=== PATIENT | female | born 1960 | race Caucasian/White ===

== ENCOUNTER → 2023-05-05 11:06 | Outpatient (POV) | payer MEDICAID, SELFPAY ==
[2023-05-05 11:23] VITALS: BP 140/57; PULSE 80; RESP 18; O2SAT 96; BMI 45.5
--- NOTE | 2023-05-05 11:50 | EXP.PAIN.SOA ---
[facility] Pain Management SOAP Note Subjective:: This patient is a very pleasant 62-year-old female who underwent intrathecal trial of fentanyl on April 12, 2023. This procedure was done in [facility]. She is following up with us in our send the in office today. Patient reporting 4 days of essentially complete pain relief and terms of her overall low back pain bilateral hip and leg radicular symptoms. Patient states she was able to do things she had not done for several years. Ambulating with no pain. Standing with no pain. Flexion, extension, left and right rotation of lumbar spine with no pain. Patient is very interested in intrathecal pain pump implantation. We will begin the process of submitting forms for insurance approval today. Objective:: Patient is awake alert [place] x 3. In no acute distress. Flexion-extension lumbar spine somewhat guarded secondary to pain. Deep tendon reflexes upper lower extremities normal. Motor strength upper lower extremities normal. There is no gross sensory deficit. Gait is normal. Assessment:: Degenerative disc lumbar spine multilevels. Lumbar radiculopathy. Plan:: We will begin the process of insurance approval for intrathecal pain pump implantation. We will call the patient as soon as we are ready. [facility] Disclaimer: The information contained in this section may have been updated after the patient was seen, as this information can be updated by other users. Medical History (Updated 05/05/23 @ 11:36 by Lalita Morrison RN) Arthritis CAD (coronary artery disease) COPD (chronic obstructive pulmonary disease) CVA (cerebral vascular accident) DDD (degenerative disc disease), lumbar Diabetes Gout Heart failure HLD (hyperlipidemia) HTN (hypertension) ELMO (obstructive sleep apnea) Vitamin D deficiency Surgical History (Updated 05/05/23 @ 11:37 by Lalita Morrison RN) H/O breast surgery H/O: hysterectomy History of cholecystectomy History of ear surgery Family History (Updated 05/05/23 @ 11:37 by Lalita Morrison RN) Other Unknown family medical history Social History (Updated 05/05/23 @ 11:39 by Lalita Morrison RN) Smoking Status: Never smoker alcohol intake: never substance use type: denies use current occupational status: unemployed Travel in the last 8 weeks: None
== END ==
PROVIDERS: Visit Provider Nurse Anesthetist, Certified Registered
DX: M51.16 Intervertebral disc disorders with radiculopathy, lumbar region (principal)
CPT/HCPCS: 99202; G0463

== ENCOUNTER 2023-07-14 07:49 | Day surgery (SDC) | payer MEDICAID, SELFPAY ==
[2023-07-13 09:07] VITALS: BMI 47.6
[2023-07-14] VITALS (9 sets, daily range): BP systolic 90–137; BP diastolic 53–79; PULSE 67–122; RESP 14–22; TEMP 36.4–36.7; O2SAT 92–96
[2023-07-14] MEDS: LACTATED RINGERS 1000ML 1,000 ML 25 ML IV (08:33)
[2023-07-14 08:50] LABS: POC Glucose,Bedside 271 (70-110)
[2023-07-14] MEDS: VANCOMYCIN/WATER FOR INJ (PEG) 1.75 GM/350 ML PIGGYBACK IV ×2 (09:55→11:33)
[2023-07-14] MEDS: LIDOCAINE 1% W/EPI 1:100,000 20ML VIAL 40 ML (11:09)
[2023-07-14] MEDS: GENTAMICIN 80 MG/2 ML VIAL (11:09)
[2023-07-14] MEDS: SODIUM CHLORIDE 0.9% 20ML VIAL 40 ML IV (11:09)
--- NOTE | 2023-07-14 12:58 | SUR.PHASEII ---
verbal order from Dr. Sommers for Bactrim DS 1 tablet BID x5 days. Prescription called in to clinic pharmacy. Notified post of staff of prescription called in (ANGEL Carcamo).
--- NOTE | 2023-07-14 13:35 | P.OP_ITS ---
Date of procedure: 07/14/23 Pre-op Diagnosis:: Degenerative disc disease of lumbar spine with lumbar radiculopathy symptoms Post-op Diagnosis:: Same Procedure performed:: Permanent placement intrathecal pain pump with tunneled intrathecal catheter and pump generator placement Surgeon:: Edouard Sommers MD DIESEL DINKEY OPERATOR:: Ruddy Juárez Anesthesia: MAC Estimated blood loss (mL): 5 Clinical Note:: This patient is a pleasant 62-year-old white female who is one of our patients for [place]. She has failed all previous conservative treatments including injections, oral medications, physical therapy and she is not a candidate for surgery. She has had a successful psychological evaluation and a successful intrathecal pump trial. She presents for permanent placement of her intrathecal pain pump today. She was 90 to 100% better during her intrathecal pump trial. Operative findings:: None Operative note:: Informed consent was obtained risk and benefits of the procedure were explained to the patient. Patient was taken the operating room placed prone on the procedure table. She was prepped and draped in sterile fashion. C-arm fluoroscopy was used to view the right flank. [facility] between the 12th rib and iliac crest we anesthetize the skin and subcutaneous tissues. I created the generator pocket. C-arm fluoroscopy was then used to view the L4-5 and L5-S1 interspace. The skin and subcutaneous tissues adjacent to the L4-5 and L5-S1 interspace were anesthetized using lidocaine. I made incision dissected down to the lumbar paraspinous fascia. A 17-gauge spinal needle was inserted and advanced into the L4-5 interspace until clear CSF was obtained. After this intrathecal catheter was inserted and advanced very easily to the T8 vertebral body. Catheter was in good location it was midline and posterior. The stylette of the catheter and the needle withdrawn. The catheter was secured to the fascia with an anchor device and 2-0 Prolene. I prepared the pump with 20 mL of intrathecal morphine 1 mg per mall. I tunneled the catheter from the back to the pump pocket and attached catheter to the pump. We are able to freely withdraw clear CSF through the sideport. The pump was then placed in the pocket with an antibiotic pouch. Both incisions were then closed with 2-0 Vicryl followed by benny. The patient was placed in an abdominal binder taken recovery in stable condition. Patient tolerated the procedure well with no complications. Was interrogated and started at 0.1 mg/day of intrathecal morphine. Patient was discharged home neurologic intact with good relief of pain symptoms. Plan and disposition: We will follow-up with this patient in 1 week for wound check and reprogram. Will follow-up in 2 to 3 weeks for staple removal. Condition: stable Disposition: PACU Complications:: None
--- NOTE | 2023-07-14 13:56 | P.PNANES_ITS ---
[facility] Disclaimer: The information contained in this section may have been updated after the patient was seen, as this information can be updated by other users. Medical History Heart failure Arthritis Gout ELMO (obstructive sleep apnea) COPD (chronic obstructive pulmonary disease) CVA (cerebral vascular accident) DDD (degenerative disc disease), lumbar HLD (hyperlipidemia) HTN (hypertension) CAD (coronary artery disease) Diabetes Vitamin D deficiency Surgical History History of ear surgery H/O: hysterectomy History of cholecystectomy H/O breast surgery Family History Other Family history of myocardial infarction Family history of stroke Unknown family medical history Social History Smoking Status: Former smoker alcohol intake: never substance use type: denies use current occupational status: unemployed Travel in the last 8 weeks: None [facility] Anesthesia Checklist Patient Identification Patient Identification: Arm Band Structural Data Admitted From: Home Planned Operative Procedure/s: Intrathecal Pain Pump Catheter and Generator Placement Under Fluoroscopy Consent for Planned Operative Procedure(s) Verified: Yes Verified Documents: Surgical Consent and History and Physical NPO Status Verified Time NPO: 00:00 Additional verifications Anesthesia Reactions: No Hx Blood Transfusions: No Airway Assessment Mallampati Score:: Class II C-Spine Mobility Assessed: Yes TMJ Mobility Assessed: Yes Dentition: Edentulous Neurological Assessment Level of Consciousness: Awake and Alert Anesthesia Plan Anesthesia Risk discussed: Yes Anesthesia Plan: Verified ASA Class: III Anesthesia Type: MAC
--- NOTE | 2023-07-14 13:57 | EXP.ANES.I ---
[facility] Anesthesia Record Part I Anesthesia Record I Intake, IV Amount: 200 Hydration: Adequate Estimated blood loss (mL): 5 Urine output (mL): 0 Blood Products used (#): none Blood Pressure: 135/76 SaO2: 92 Pulse Rate: 102 Airway Patency: Patent Respiratory Rate: 16 Temperature: 98 F Patient is:: Drowsy and Stable Stable to PACU at:: 11:40
[2023-07-17 06:40] LABS: POC Glucose,Bedside 290 (70-110)
== END 2023-07-14 13:00 | disposition home or self-care (01) ==
PROVIDERS: Visit Provider Anesthesiology
PROC: (CPT 62350; principal; 2023-07-14 09:30)
DX: M51.16 Intervertebral disc disorders with radiculopathy, lumbar region (principal); E11.9 Type 2 diabetes mellitus without complications
CPT/HCPCS: 62350; 62362; 82962; 96374; C1755; C1772

== ENCOUNTER 2023-07-20 11:10 | Outpatient (POV) | payer MEDICAID, SELFPAY ==
[2023-07-20 11:19] VITALS: BP 105/81; PULSE 59; RESP 18; O2SAT 95; BMI 46.0
--- NOTE | 2023-07-20 11:41 | P.PCN_ITS ---
Procedure Date: 07/20/23 Time: 11:41 Anesthesiologist:: Vane Escobar APRN Complications:: None Pre-procedure Diagnosis:: Degenerative disc disease of lumbar spine with lumbar radiculopathy symptoms Post-procedure Diagnosis:: Same Indications for Procedure:: Patient is a pleasant 62-year-old female who presents today for 1 week postop of intrathecal pain pump placement on 07/14/2023. Today she rates her pain at 8 and out of 10. She denies any new trauma or injury. She does state that she feels like she has gotten already some improvement compared to what she was prior to this procedure. She states that she is feels like the pump is helping and working well. She is currently managed with morphine 1 mg/mL with a daily dose of 0.0999 mg/day. She denies any side effects from this medication. Her [place] has been reviewed and is appropriate. Physical Exam: General: Alert and oriented x3, no acute distress, pleasant and cooperative Lungs: Respirations even and unlabored, symmetrical chest expansion Eyes: PERRL Musculoskeletal: Flexion and extension of lumbar [spine] somewhat guarded secondary to pain, [antalgic gait noted] Neurological: Speech clear, no gross sensory deficit Skin: Incision sites are clean, dry, well-approximated with benny intact and minimal erythema noted Procedure Details:: Informed consent was obtained and the risk and benefits of the procedure were explained to the patient. Patient was taken to the procedure room where noninvasive monitoring was placed including noninvasive blood pressure cuff and pulse oximeter. Patient's pump was interrogated and was reprogrammed to morphine 0.11 mg/day. The patient tolerated the procedure well with no complications. Plan and Disposition:: Patient tolerated her intrathecal increase with no complications and was discharged neurologically intact. Patient has been counseled to continue her postop restrictions for the full 6 weeks including no submerging in water until her incisions are healed, minimal bending, twisting or lifting and to continue to use her abdominal binder to prevent seroma formation. Patient will return to clinic in 2 weeks for staple removal and possible additional adjustment. Patient acknowledges understanding. Patient has been instructed to contact the clinic with any concerns before the next appointment. Dr. Sommers has reviewed this note and agrees with this plan of care. This note was dictated using voice recognition software and make contain errors or omissions. -- It Is medically necessary for this patient to continue to have their intrathecal pump refilled at regular intervals. This patient had an intrathecal pain pump implanted after meeting criteria of chronic intractable pain for greater than 3 months and failing conservative treatments. Patient has committed and been compliant to the treatment plan and all planned follow up care. Since implantation of the intrathecal pain pump, the patient has had decreased pain and been more functional. Oral medications have been reduced including intake of oral opioids. Patient continues to do well with intrathecal therapy with decrease in pain symptoms and increase in functional status. Stopping intratheca l medications can lead to life threatening withdrawal, seizures, cardiac arrest, severe pain, and possible . Pumps that are not refilled at regular intervals can be damages and cause and need for replacement. We continually titrate dose and concentration to optimize pain relief and function. We are limited in concentration for certain drugs to safely deliver medications through the pump and stay within the recommendations from the Polyanalgesic Consensus Committee Guidelines. Depending on dose and concentration these pumps may need to be refilled sooner than 3 months as we titrate.
== END 2023-07-20 23:59 | disposition home or self-care (01) ==
PROVIDERS: Visit Provider Nurse Practitioner Family
DX: M51.16 Intervertebral disc disorders with radiculopathy, lumbar region (principal); Z97.8 Presence of other specified devices; Z45.1 Encounter for adjustment and management of infusion pump
CPT/HCPCS: 62368; 99212; G0463

== ENCOUNTER 2023-08-04 11:02 | Outpatient (POV) | payer MEDICAID, SELFPAY ==
--- NOTE | 2023-08-04 11:10 | EXP.PAIN.PRO ---
Procedure Date: 08/04/23 Time: 11:11 Anesthesiologist:: Vane Escobar APRN Complications:: None Pre-procedure Diagnosis:: Degenerative disc disease of lumbar spine with lumbar radiculopathy symptoms, chronic pain syndrome Post-procedure Diagnosis:: Same Indications for Procedure:: Patient is a pleasant 62-year-old female who presents today for 3 week postop of intrathecal pain pump placement on 07/14/2023. Today she rates her pain a 6 out of 10. She does state that she fell last Monday and denies any specific major injury. She states that she just was a little sore however does not think that she did anything more major like a fracture. She does state that she will still have more pain that seems like at the end of the day that she will wake back and her recliner and that it does seem more bothersome then. She is requesting if we can do an increase. She is currently managed with morphine 1 mg/mL with a daily dose of 0.11 mg/day. She denies any side effects from this medication. Her [place] has been reviewed and is appropriate. Physical Exam: General: Alert and oriented x3, no acute distress, pleasant and cooperative Lungs: Respirations even and unlabored, symmetrical chest expansion Eyes: PERRL Musculoskeletal: Flexion and extension of lumbar [spine] somewhat guarded secondary to pain, [antalgic gait noted] Neurological: Speech clear, no gross sensory deficit Skin: Incision sites are clean, dry, well-approximated with benny intact and minimal erythema noted Procedure Details:: Informed consent was obtained and the risk and benefits of the procedure were explained to the patient. Patient was taken to the procedure room where noninvasive monitoring was placed including noninvasive blood pressure cuff and pulse oximeter. Patient's pump was interrogated and was reprogrammed to morphine 0.1211 mg/day. The patient tolerated the procedure well with no complications. Plan and Disposition:: Patient tolerated her intrathecal increase with no complications and was discharged neurologically intact. Patient did have majority of her benny removed at today's visit. Patient does still have 3 benny that were left in place as a precaution. I have discussed with her that we will plan on having her come back in 2 additional weeks for possible additional adjustment of her pump as well as the removal of these remaining sutures. She was counseled to continue her full 6-week postop restrictions. Patient acknowledges understanding and agrees with this plan of care. Patient will return to clinic in 1 month for reevaluation of symptoms and plan of care. Patient has been instructed to contact the clinic with any concerns before the next appointment. Dr. Sommers has reviewed this note and agrees with this plan of care. This note was dictated using voice recognition software and make contain errors or omissions. -- It Is medically necessary for this patient to continue to have their intrathecal pump refilled at regular intervals. This patient had an intrathecal pain pump implanted after meeting criteria of chronic intractable pain for greater than 3 months and failing conservative treatments. Patient has committed and been compliant to the treatment plan and all planned follow up care. Since implantation of the intrathecal pain pump, the patient has had decreased pain and been more functional. Oral medications have been reduced including intake of oral opioids. Patient continues to do well with intrathecal therapy with decrease in pain symptoms and increase in functional status. Stopping intrathecal medications can lead to life threatening withdrawal, seizures, cardiac arrest, severe pain, and possible . Pumps that are not refilled at regular intervals can be damages and cause and need for replacement. We continually titrate dose and concentration to optimize pain relief and function. We are limited in concentration for certain drugs to safely deliver medications through the pump and stay within the recommendations from the Polyanalgesic Consensus Committee Guidelines. Depending on dose and concentration these pumps may need to be refilled sooner than 3 months as we titrate.
[2023-08-04 11:31] VITALS: BP 153/60; PULSE 74; RESP 18; O2SAT 95; BMI 47.0
== END 2023-08-04 23:59 | disposition home or self-care (01) ==
PROVIDERS: Visit Provider Nurse Practitioner Family
DX: M51.16 Intervertebral disc disorders with radiculopathy, lumbar region (principal); G89.4 Chronic pain syndrome; Z97.8 Presence of other specified devices; Z45.1 Encounter for adjustment and management of infusion pump
CPT/HCPCS: 62368; 99213; G0463

== ENCOUNTER 2023-08-21 13:53 | Outpatient (POV) | payer MEDICAID, SELFPAY ==
[2023-08-21 14:36] VITALS: BP 94/63; PULSE 87; RESP 20; O2SAT 94; BMI 45.5
--- NOTE | 2023-08-21 14:41 | P.PCN_ITS ---
Procedure Date: 08/21/23 Time: 14:41 Anesthesiologist:: Vane Escobar APRN Complications:: None Pre-procedure Diagnosis:: Degenerative disc disease of lumbar spine with lumbar radiculopathy symptoms, chronic pain syndrome Post-procedure Diagnosis:: Same Indications for Procedure:: Patient is a pleasant 62-year-old female who presents today for intrathecal adjustment and reprogram. Today she rates her pain an 8 out of 10. Patient states she did have a couple falls since her last visit. Patient does state that she is somewhat accident-prone in general and that she stumbled getting out of the vehicle. Patient does state that she fell back on her back and hit the back of her head however she does not believe she did anything significant. Patient is currently managed with morphine 1 mg/mL with a daily dose of 0.1211 mg/day. She denies any side effects from this medication. Her [place] has been reviewed and is appropriate. Physical Exam: General: Alert and oriented x3, no acute distress, pleasant and cooperative Lungs: Respirations even and unlabored, symmetrical chest expansion Eyes: PERRL Musculoskeletal: Flexion and extension of lumbar [spine] somewhat guarded secondary to pain, [antalgic gait noted] Neurological: Speech clear, no gross sensory deficit Procedure Details:: Informed consent was obtained and the risk and benefits of the procedure were explained to the patient. Patient was taken to the procedure room where noninvasive monitoring was placed including noninvasive blood pressure cuff and pulse oximeter. Patient's pump was interrogated and was reprogrammed to morphine 0.90955 mg/day. The patient tolerated the procedure well with no complications. Plan and Disposition:: Patient tolerated her intrathecal increase with no complications and was disch arged neurologically intact. She did have the remainder of her benny removed during today's visit. She was counseled to continue her postop restrictions for the full 6 weeks. I have also discussed with the patient precautions to minimize fall risk. Patient will return to clinic in 1 month for reevaluation of symptoms and plan of care. We will see the patient back in the clinic at the next intrathecal refill. Patient has been instructed to contact the clinic with any concerns before the next appointment. Dr. Sommers has reviewed this note and agrees with this plan of care. This note was dictated using voice recognition software and make contain errors or omissions. -- It Is medically necessary for this patient to continue to have their intrathecal pump refilled at regular intervals. This patient had an intrathecal pain pump implanted after meeting criteria of chronic intractable pain for greater than 3 months and failing conservative treatments. Patient has committed and been co mpliant to the treatment plan and all planned follow up care. Since implantation of the intrathecal pain pump, the patient has had decreased pain and been more functional. Oral medications have been reduced including intake of oral opioids. Patient continues to do well with intrathecal therapy with decrease in pain symptoms and increase in functional status. Stopping intrathecal medications can lead to life threatening withdrawal, seizures, cardiac arrest, severe pain, and possible . Pumps that are not refilled at regular intervals can be damages and cause and need for replacement. We continually titrate dose and concentration to optimize pain relief and function. We are limited in concentration for certain drugs to safely deliver medications through the pump and stay within the recommendations from the Polyanalgesic Consensus Committee Guidelines. Depending on dose and concentration these pumps may need to be refilled sooner than 3 months as we titrate.
== END 2023-08-21 23:59 | disposition home or self-care (01) ==
PROVIDERS: Visit Provider Nurse Practitioner Family
DX: M51.16 Intervertebral disc disorders with radiculopathy, lumbar region (principal); M96.1 Postlaminectomy syndrome, not elsewhere classified; Z97.8 Presence of other specified devices; Z45.1 Encounter for adjustment and management of infusion pump
CPT/HCPCS: 62368; 99213; G0463

== ENCOUNTER 2023-09-21 14:06 | Outpatient (POV) | payer MEDICAID, SELFPAY ==
[2023-09-21 14:20] VITALS: BP 116/53; PULSE 79; RESP 18; O2SAT 97; BMI 45.3
--- NOTE | 2023-09-21 14:39 | P.PCN_ITS ---
Procedure Date: 09/21/23 Time: 14:39 Anesthesiologist:: Vane Escobar APRN Complications:: None Pre-procedure Diagnosis:: Degenerative disc disease of lumbar spine with lumbar radiculopathy symptoms, chronic pain syndrome Post-procedure Diagnosis:: Same Indications for Procedure:: Patient is a pleasant 62-year-old female who presents today for intrathecal adjustment and reprogram. Today she rates her pain a 7 out of 10. She denies any new trauma or injury. She is currently managed with morphine 1 mg/mL with a daily dose of 0.87103 mg/day. She denies any side effects from this medication. Patient does state that she feels like she still needs some additional adjustment. Patient does state at her last refill they did mention about possibly getting her set up with the at home refill program. Patient states that she is very interested in this option. Her [place] has been reviewed and is appropriate. Physical Exam: General: Alert and oriented x3, no acute distress, pleasant and cooperative Lungs: Respirations even and unlabored, symmetrical chest expansion Eyes: PERRL Musculoskeletal: Flexion and extension of lumbar [spine] somewhat guarded secondary to pain, [antalgic gait noted] Neurological: Speech clear, no gross sensory deficit Procedure Details:: Informed consent was obtained and the risk and benefits of the procedure were explained to the patient. Patient was taken to the procedure room where noninvasive monitoring was placed including noninvasive blood pressure cuff and pulse oximeter. Patient's pump was interrogated and was reprogrammed to morphine 0.1533 milligrams per day. The patient tolerated the procedure well with no complications. Plan and Disposition:: Patient tolerated her intrathecal increase with no complications and was discharged neurologically intact. We will see the patient back in the clinic at the next intrathecal refill. I have discussed with the patient that we will plan on getting her set up with [facility] at home refill however with her upcoming intrathecal refill in October to still plan on coming here to the hospital for that appointment and then after that we will make sure that she is getting her refills at home. Patient was counseled that we will require her to come in every 6 months. Patient is agreeable to this plan of care. Patient has been instructed to contact the clinic with any concerns before the next appointment. Dr. Sommers has reviewed this note and agrees with this plan of care. This note was dictated using voice recognition software and make contain errors or omissions. -- It Is medically necessary for this patient to continue to have their intrathecal pump refilled at regular intervals. This patient had an intrathecal pain pump implanted after meeting criteria of chronic intractable pain for greater than 3 months and failing conservative treatments. Patient has committed and been compliant to the treatment plan and all planned follow up care. Since implantation of the intrathecal pain pump, the patient has had decreased pain and been more functional. Oral medications have been reduced including intake of oral opioids. Patient continues to do well with intrathecal therapy with decrea se in pain symptoms and increase in functional status. Stopping intrathecal medications can lead to life threatening withdrawal, seizures, cardiac arrest, severe pain, and possible . Pumps that are not refilled at regular intervals can be damages and cause and need for replacement. We continually titrate dose and concentration to optimize pain relief and function. We are limited in concentration for certain drugs to safely deliver medications through the pump and stay within the recommendations from the Polyanalgesic Consensus Committee Guidelines. Depending on dose and concentration these pumps may need to be refilled sooner than 3 months as we titrate.
== END 2023-09-21 23:59 | disposition home or self-care (01) ==
PROVIDERS: Visit Provider Nurse Practitioner Family
DX: M51.16 Intervertebral disc disorders with radiculopathy, lumbar region (principal); G89.4 Chronic pain syndrome; Z97.8 Presence of other specified devices; Z45.1 Encounter for adjustment and management of infusion pump
CPT/HCPCS: 62368; 99213; G0463

== ENCOUNTER 2023-10-31 13:44 | Day surgery (SDC) | payer MEDICAID, SELFPAY ==
[2023-10-31 14:12] VITALS: BP 130/96; PULSE 94; RESP 16; TEMP 36.8; O2SAT 98; BMI 42.4
--- NOTE | 2023-10-31 14:29 | EXP.PAIN.PRO ---
Procedure Date: 10/31/23 Time: 14:30 Anesthesiologist:: Jan Henderson CRNA Complications:: None Pre-procedure Diagnosis:: Degenerative disc lumbar spine multilevels. Lumbar radiculopathy. Chronic pain syndrome. Post-procedure Diagnosis:: Same. Indications for Procedure:: Patient is a pleasant 62-year-old female comes our clinic today for intrathecal pain pump interrogation and refill. She is currently being managed with morphine sulfate 1 mg/mL. Intrathecal pain pump rate is 0.1533 mg/day. Patient doing very well with her current settings. She not requesting any changes. She is not reporting side effects or complications. Procedure Details:: Details of the procedure were explained to the patient. Patient taken to procedure room placed in sitting position. The area of the pump was cleaned using chlorhexidine cleansing solution. The pump was interrogated. The pump was accessed with ease using a 22-gauge inch and half needle. 4 mL solution was withdrawn discarded appropriately. The pump was then filled with 20 cc of solution containing morphine sulfate 1 mg/mL. The rate will continue at 0.1533 mg/day. Patient tolerated procedure without difficulty. There are no complications. Plan and Disposition:: Patient was discharged without incident.
[2023-10-31 14:35] VITALS: BP 124/76; PULSE 78; RESP 16; O2SAT 98
[2023-10-31 14:55] VITALS: BP 138/63; PULSE 83; RESP 18; O2SAT 96
[2023-10-31 14:56] VITALS: BP 138/63; PULSE 83; RESP 18; O2SAT 96
== END 2023-10-31 14:35 | disposition home or self-care (01) ==
PROVIDERS: Visit Provider Nurse Anesthetist, Certified Registered
DX: G89.4 Chronic pain syndrome (principal); M51.36 Other intervertebral disc degeneration, lumbar region; M54.16 Radiculopathy, lumbar region
CPT/HCPCS: 95991

== ENCOUNTER 2024-01-04 14:13 | Outpatient (POV) | payer MEDICAID, SELFPAY ==
--- NOTE | 2024-01-04 14:39 | P.PCN_ITS ---
Procedure Date: 01/04/24 Time: 14:39 Anesthesiologist:: Vane Escobar APRN Complications:: None Pre-procedure Diagnosis:: Degenerative disc disease of lumbar spine with lumbar radiculopathy symptoms Post-procedure Diagnosis:: Same Indications for Procedure:: Patient is a pleasant 63-year-old female who presents today for intrathecal adjustment and reprogram. Today she rates her pain a 9 out of 10. Patient does state that she has had a few falls from her last visit. Patient states that it is unrelated to her pump and has more so what she thinks to do with doing a lot of work and that she has been experience a little dizziness when she goes from bending over to standing up resulting in her falls. Patient does state that she is scheduled to see her primary care soon and that her A1c has been 9 and that they are trying to get this down. Patient does state that she has lost appr oximately 45 pounds with diet medications. She is currently managed with morphine 1 mg/mL with a daily dose of 0.1533 mg/day. She denies any side effects from this medication. Her [place] has been reviewed and is appropriate. Physical Exam: General: Alert and oriented x3, no acute distress, pleasant and cooperative Lungs: Respirations even and unlabored, symmetrical chest expansion Eyes: PERRL Musculoskeletal: Flexion and extension of lumbar [spine] somewhat guarded secondary to pain, [antalgic gait noted] Neurological: Speech clear, no gross sensory deficit Procedure Details:: Informed consent was obtained and the risk and benefits of the procedure were explained to the patient. Patient was taken to the procedure room where noninvasive monitoring was placed including noninvasive blood pressure cuff and pulse oximeter. Patient's pump was interrogated and was reprogrammed to morphine 0.1687 mg/day. The patient tolerated the procedure well with no complications. Plan and Disposition:: Patient tolerated intrathecal increase with no complications and was discharged neurologically intact. I did discuss at length with the patient regarding her dizziness and recent falls. I highly recommend that she follow-up with her primary care as soon as possible to rule out any other issues. Patient does state that she is on blood pressure medication. I have counseled her that they may need to make some additional adjustments regarding this. She acknowledges understanding and agrees with plan of care. Patient already does have her next intrathecal refill date scheduled next month. I did alcohol and drug counselor her that we will not give her any additional appointment dates and if she needs us in between visits to reach out to our office. Patient agrees with this plan of care. Patient will return to clinic for her intrathecal refill on or before the . We will see the patient back in the clinic at the next intrathecal refill. Patient has been instructed to contact the clinic with any concerns before the next appointment. Dr. Sommers has reviewed this note and agrees with this plan of care. This note was dictated using voice recognition software and make contain errors or omissions. -- It Is medically necessary for this patient to continue to have their intrathecal pump refilled at regular intervals. This patient had an intrathecal pain pump implanted after meeting criteria of chronic intractable pain for greater than 3 months and failing conservative treatments. Patient has committed and been compliant to the treatment plan and all planned follow up care. Since implantation of the intrathecal pain pump, the patient has had decreased pain and been more functional. Oral medications have been reduced including intake of oral opioids. Patient continues to do well with intrathecal therapy with decrease in pain symptoms and increase in functional status. Stopping intrathe nichole medications can lead to life threatening withdrawal, seizures, cardiac arrest, severe pain, and possible . Pumps that are not refilled at regular intervals can be damages and cause and need for replacement. We continually titrate dose and concentration to optimize pain relief and function. We are limited in concentration for certain drugs to safely deliver medications through the pump and stay within the recommendations from the Polyanalgesic Consensus Committee Guidelines. Depending on dose and concentration these pumps may need to be refilled sooner than 3 months as we titrate.
[2024-01-04 14:56] VITALS: BP 128/80; PULSE 78; RESP 16; O2SAT 97; BMI 40.9
== END 2024-01-04 23:59 | disposition home or self-care (01) ==
PROVIDERS: Visit Provider Nurse Practitioner Family
DX: M51.16 Intervertebral disc disorders with radiculopathy, lumbar region (principal)
CPT/HCPCS: 62368; 99213; G0463

== ENCOUNTER 2024-01-23 13:58 | Day surgery (SDC) | payer MEDICAID, SELFPAY ==
[2024-01-23 14:15] VITALS: BP 152/79; PULSE 81; RESP 16; O2SAT 99; BMI 40.2
[2024-01-23 14:24] VITALS: BP 154/81; PULSE 72; RESP 18; O2SAT 97
[2024-01-23 14:26] VITALS: BP 154/81; PULSE 72; RESP 18; O2SAT 97
[2024-01-23 14:40] VITALS: BP 128/76; PULSE 75; RESP 16; O2SAT 97
--- NOTE | 2024-01-23 14:45 | EXP.PAIN.PRO ---
Procedure Date: 01/23/24 Time: 14:30 Anesthesiologist:: Jan Henderson CRNA Complications:: None Pre-procedure Diagnosis:: Degenerative disc lumbar spine multilevels. Lumbar radiculopathy. Lumbar postlaminectomy syndrome. Chronic pain syndrome. Post-procedure Diagnosis:: Same. Indications for Procedure:: Patient is a pleasant 63-year-old female who comes our clinic today for intrathecal pain pump interrogation and refill. Patient currently being managed with morphine sulfate 1 mg/mL at a rate of 0.1687 mg/day. She is not reporting side effects or complications. She is not requesting any changes. She rates her pain today 3/10. Patient is awake alert [place] x 3. No acute distress. Flexion-extension lumbar spine somewhat guarded secondary to pain. Deep tendon reflexes upper lower extremities normal. Motor strength upper lower extremities normal. There is no gross sensory deficit. Gait is normal. Procedure Details:: Details of procedure explained to the patient. The patient taken the procedure room placed in sitting position. They over the pumps cleansed using chlorhexidine as a cleansing solution. The pump was interrogated. The pump was accessed with ease using a 22-gauge inch and half needle. 6 mL of solution was withdrawn discarded appropriately. The pump was then filled with 20 cc of solution containing morphine sulfate 1 mg/mL. No change in pump rate. Patient tolerated procedure without difficulty. No complications. Plan and Disposition:: Patient was discharged without incident.
== END 2024-01-23 14:40 | disposition home or self-care (01) ==
LOC: SC.PAINP 14:00
PROVIDERS: PCP Family Medicine; Visit Provider Nurse Anesthetist, Certified Registered
DX: M51.16 Intervertebral disc disorders with radiculopathy, lumbar region (principal); M96.1 Postlaminectomy syndrome, not elsewhere classified; G89.4 Chronic pain syndrome
CPT/HCPCS: 95991

== ENCOUNTER 2024-04-05 10:55 | Day surgery (SDC) | payer MEDICAID, SELFPAY ==
[2024-04-05 11:45] VITALS: BP 115/61; PULSE 69; RESP 16; TEMP 36.6; O2SAT 97; BMI 36.6
--- NOTE | 2024-04-05 12:10 | EXP.PAIN.PRO ---
Procedure Date: 04/05/24 Time: 12:19 Anesthesiologist:: Vane Escobar APRN Complications:: None Pre-procedure Diagnosis:: Degenerative disc disease of lumbar spine with lumbar radiculopathy symptoms Post-procedure Diagnosis:: Same Indications for Procedure:: Patient is a pleasant 63-year-old female who presents today for intrathecal refill and reprogram. Today she rates her pain a 8 out of 10. She denies any new trauma or injury. Patient is currently managed with morphine 1 mg/mL with a daily dose of 0.1687 mg/day. She denies any side effects from this medication. His [place] has been reviewed and is appropriate. Physical Exam: General: Alert and oriented x3, no acute distress, pleasant and cooperative Lungs: Respirations even and unlabored, symmetrical chest expansion Eyes: PERRL Musculoskeletal: Flexion and extension of lumbar [spine] somewhat guarded secondary to pain, [antalgic gait noted] Neurological: Speech clear, no gross sensory deficit Procedure Details:: Informed consent was obtained and the risk and benefits of the procedure were explained to the patient. The patient had noninvasive monitoring placed including noninvasive blood pressure cuff and pulse oximeter. Patient's pump was interrogated. The area over the pump was cleansed with chlorhexidine as a cleansing solution. In sterile fashion the pump was accessed with a 22-gauge needle. Approximately 7.9 mls of the pump solution was removed and discarded appropriately. The pump was then refilled with 20 mL's of morphine 1 mg/mL. The needle was withdrawn and a bandage was placed over the puncture site. The infusion rate was reprogrammed and morphine 0.1687 mg/day. The patient tolerated well with no complication. Plan and Disposition:: Patient tolerated her intrathecal refill and reprogram with no complications and was discharged neurologically intact. Patient will return to clinic for her next intrathecal refill date. We will see the patient back in the clinic at the next intrathecal refill. Patient has been instructed to contact the clinic with any concerns before the next appointment. Dr. Sommers has reviewed this note and agrees with this plan of care. This note was dictated using voice recognition software and make contain errors or omissions. -- It Is medically necessary for this patient to continue to have their intrathecal pump refilled at regular intervals. This patient had an intrathecal pain pump implanted after meeting criteria of chronic intractable pain for greater than 3 months and failing conservative treatments. Patient has committed and been compliant to the treatment plan and all planned follow up care. Since implantation of the intrathecal pain pump, the patient has had decreased pain and been more functional. Oral medications have been reduced including intake of oral opioids. Patient continues to do well with intrathecal therapy with decrease in pain symptoms and increase in functional status. Stopping intrathecal medications can lead to life threatening withdrawal, seizures, cardiac arrest, severe pain, and possible . Pumps that are not refilled at regular intervals can be damages and cause and need for replacement. We continually titrate dose and concentration to optimize pain relief and function. We are limited in concentration for certain drugs to safely deliver medications through the pump and stay within the recommendations from the Polyanalgesic Consensus Committee Guidelines. Depending on dose and concentration these pumps may need to be refilled sooner than 3 months as we titrate. A UDS is needed to verify patient's compliance with our office pain contract. This is ordered based off specific treatments related to chronic pain with the potential to abuse certain medications.
[2024-04-05 12:14] VITALS: BP 136/79; PULSE 71; RESP 18; O2SAT 95
[2024-04-05 12:15] VITALS: BP 136/79; PULSE 70; RESP 18; O2SAT 97
[2024-04-05 12:33] VITALS: BP 117/65; PULSE 87; RESP 16; O2SAT 95
== END 2024-04-05 12:33 | disposition home or self-care (01) ==
PROVIDERS: Visit Provider Nurse Practitioner Family
DX: M51.16 Intervertebral disc disorders with radiculopathy, lumbar region (principal)
CPT/HCPCS: 62370

== ENCOUNTER 2024-06-21 10:25 | Day surgery (SDC) | payer MEDICAID, SELFPAY ==
[2024-06-21 10:40] VITALS: BP 136/70; PULSE 79; RESP 16; TEMP 36.8; O2SAT 98; BMI 41.1
--- NOTE | 2024-06-21 10:45 | P.PCN_ITS ---
Procedure Date: 06/21/24 Time: 11:24 Anesthesiologist:: Vane Escobar APRN Complications:: None Pre-procedure Diagnosis:: Degenerative disc disease of lumbar spine with lumbar radiculopathy symptoms Post-procedure Diagnosis:: Same Indications for Procedure:: Patient is a pleasant 63-year-old female who presents today for intrathecal refill and reprogram. She rates her pain today a 6 out of 10. Patient denies any new trauma or injury. She does state that she is having creased pain ove rall. Patient is requesting if we can go up on her pump settings. Patient is currently managed with morphine 1 mg/mL with a daily dose of 0.1687 mg/day. She denies any side effects. She does state that the pump is going well and that she has been able to do more than she is ever done for some time. She does state certain things she still cannot do such as get down on the floor but that this does make her feel much more functional. Her [place] has been reviewed and is appropriate. Physical Exam: General: Alert and oriented x3, no acute distress, pleasant and cooperative Lungs: Respirations even and unlabored, symmetrical chest expansion Eyes: PERRL Musculoskeletal: Flexion and extension of lumbar [spine] somewhat guarded secondary to pain, [antalgic gait noted] Neurological: Speech clear, no gross sensory deficit Procedure Details:: Informed consent was obtained and the risk and benefits of the procedure were explained to the patient. The patient had noninvasive monitoring placed including noninvasive blood pressure cuff and pulse oximeter. Patient's pump was interrogated. The area over the pump was cleansed with chlorhexidine as a cleansing solution. In sterile fashion the pump was accessed with a 22-gauge needle. Approximately 7 mls of the pump solution was removed and discarded appropriately. The pump was then refilled with 20 mL's of morphine 1 mg/mL. The needle was withdrawn and a bandage was placed over the puncture site. The infusion rate was reprogrammed and increased 10% to morphine 0.1855 mg/day. The patient tolerated well with no complication. Plan and Disposition:: Patient tolerated the procedure well with no complications and was discharged neurologically intact. Patient will return to clinic on or before their next intrathecal refill date. We will see the patient back in the clinic at the next intrathecal refill. Patient has been instructed to contact the clinic with any concerns before the next appointment. Dr. Sommers has reviewed this note and agrees with this plan of care. This note was dictated using voice recognition software and make contain errors or omissions. -- It Is medically necessary for this patient to continue to have their intrathecal pump refilled at regular intervals. This patient had an intrathecal pain pump im planted after meeting criteria of chronic intractable pain for greater than 3 months and failing conservative treatments. Patient has committed and been compliant to the treatment plan and all planned follow up care. Since implantation of the intrathecal pain pump, the patient has had decreased pain and been more functional. Oral medications have been reduced including intake of oral opioids. Patient continues to do well with intrathecal therapy with decrease in pain symptoms and increase in functional status. Stopping intrathecal medications can lead to life threatening withdrawal, seizures, cardiac arrest, severe pain, and possible . Pumps that are not refilled at regular intervals can be damages and cause and need for replacement. We continually titrate dose and concentration to optimize pain relief and function. We are limited in concentration for certain drugs to safely deliver medications through the pump and stay within the recommendations from the Polyanalgesic Consensus Committee Guidelines. Depending on dose and concentration these pumps may need to be refilled sooner than 3 months as we titrate. A UDS is needed to verify patient's compliance with our office pain contract. This is ordered based off specific treatments related to chronic pain with the potential to abuse certain medications.
[2024-06-21 11:20] VITALS: BP 129/56; PULSE 78; RESP 18; O2SAT 98
[2024-06-21 11:22] VITALS: BP 129/56; PULSE 85; RESP 18; O2SAT 98
[2024-06-21 11:33] VITALS: BP 102/70; PULSE 69; RESP 16; O2SAT 92
== END 2024-06-21 11:33 | disposition home or self-care (01) ==
PROVIDERS: PCP Family Medicine; Visit Provider Nurse Practitioner Family
DX: M51.16 Intervertebral disc disorders with radiculopathy, lumbar region (principal)
CPT/HCPCS: 62370

== ENCOUNTER 2024-08-16 09:21 | Day surgery (SDC) | payer MEDICAID, SELFPAY ==
[2024-08-16 09:28] VITALS: BP 112/61; PULSE 78; RESP 16; TEMP 36.6; O2SAT 97; BMI 41.8
--- NOTE | 2024-08-16 09:30 | P.HP_ITS ---
History of Present Illness *Admission Date: 08/16/24 *Reason for visit:: Intrathecal refill; DDD *History of present illness: Degenerative disc disease [facility] Disclaimer: The information contained in this section may have been updated after the patient was seen, as this information can be updated by other users. Medical History (Updated 08/16/24 @ 09:33 by Vane Escobar APRN) Heart failure Arthritis Gout ELMO (obstructive sleep apnea) COPD (chronic obstructive pulmonary disease) CVA (cerebral vascular accident) DDD (degenerative disc disease), lumbar HLD (hyperlipidemia) HTN (hypertension) CAD (coronary artery disease) Diabetes Vitamin D deficiency Surgical History History of ear surgery H/O: hysterectomy History of cholecystectomy H/O breast surgery Family History Other Family history of myocardial infarction Family history of stroke Unknown family medical history Social History Smoking Status: Former smoker alcohol intake: never substance use type: denies use current occupational status: other Travel in the last 8 weeks?: None Have you lived/traveled outside [place] in past 30 days?: No Contact w/someone who lives/traveled outside US past 30 days?: No Exposure to someone with infectious disease in past 14 days?: No Do you have a fever (greater than 100.4 F or 38 C)?: No Have you tested positive for COVID-19?: No Exposed to someone with COVID-19 in past 14 days?: No Do you have a sore throat?: No Do you have a cough?: No Do you have any weakness?: No Do you have any diarrhea?: No Are you experiencing any unusual bleeding?: No Do you have any muscle aches/pain?: No Do you have any abdominal pain?: No Are you experiencing loss of taste or smell?: No Other Medical History Have you received the Flu Vaccine for this season: No Have you received the Pneumonia Vaccine: No Review of Systems Review of Systems Review of systems:: pertinent systems reviewed and negative unless documented below Review of systems (narrative): Review of Systems: General: No recent weight changes, no fever, no sleep disturbances Respiratory: No cough, no shortness of air, no recurring pulmonary infections Cardiovascular/peripheral vascular: No chest pain, no palpitations, no edema, no shortness of breath Gastrointestinal: No new onset incontinence, normal bowel movements reported Genitourinary: No new onset incontinence Musculoskeletal: Chronic back pain Psychiatric: [Normal mood/affect] Neurological: [Denies weakness in extremities], [denies balance issues] Meds Home Medications and Allergies Home Medications ?Medication ?Instructions ?Recorded ?Confirmed ?Type albuterol sulfate 2.5 mg/3 mL 2.5 mg inhalation Q4H PRN 05/05/23 08/16/24 History (0.083 %) solution for nebulization Breathing Problems aspirin 325 mg tablet,delayed 325 mg PO DAILY Heart Disease 05/05/23 08/16/24 History release calcium polycarbophil 625 mg 1,250 mg PO DAILY SUPPLIMENT 05/05/23 08/16/24 History tablet (Fiber-Lax) clopidogrel 75 mg tablet 75 mg PO DAILY Heart Disease 05/05/23 08/16/24 History cyanocobalamin (vitamin B-12) 1,000 mcg PO DAILY SUPPLIMENT 05/05/23 08/16/24 History 1,000 mcg tablet cyclobenzaprine 5 mg tablet 5 mg PO DAILY Pain 05/05/23 08/16/24 History dulaglutide 0.75 mg/0.5 mL 0.75 mg SQ WEEKLY 05/05/23 08/16/24 History subcutaneous pen injector ergocalciferol (vitamin D2) 50 mcg 50 mcg PO Q7D 05/05/23 08/16/24 History (2,000 unit) tablet esomeprazole magnesium 40 mg 40 mg PO DAILY GERD 05/05/23 08/16/24 History capsule,delayed release fenofibrate nanocrystallized 145 145 mg PO DAILY Cholesterol 05/05/23 08/16/24 History mg tablet insulin aspart U-100 100 unit/mL 60 unit SQ BID 05/05/23 08/16/24 History (3 mL) subcutaneous pen (Novolog FlexPen U-100 Insulin aspart) insulin glargine 100 unit/mL (3 70 unit SQ HS 05/05/23 08/16/24 History mL) subcutaneous pen (Lantus Solostar U-100 Insulin) isosorbide mononitrate 60 mg 60 mg PO DAILY 02/02/24 05/16/25 History tablet,extended release 24 hr loratadine 10 mg tablet 10 mg PO DAILY ALLERGIES 05/05/23 08/16/24 History losartan 100 1 tab PO DAILY BLOOD PRESSURE 05/05/23 08/16/24 History mg-hydrochlorothiazide 25 mg tablet metformin 1,000 mg tablet 1,000 mg PO BID Diabetes 05/05/23 08/16/24 History metoprolol tartrate 50 mg tablet 50 mg PO BID BLOOD PRESSURE 05/05/23 08/16/24 History montelukast 10 mg tablet 10 mg PO DAILY ALLERGIES 05/05/23 08/16/24 History nitroglycerin 0.4 mg sublingual 0.4 mg sublingual Q5MINP PRN Chest 05/05/23 08/16/24 History tablet Pain New Prescriptions to Start Prescriptions: Allergies Allergy/AdvReac Type Severity Reaction Status Date / Time adhesive tape AdvReac Unknown Verified 01/23/24 14:15 allergy reaction Exam Constitutional Constitutional: no acute distress *Routine HEENT Exam Head: Present normocephalic and atraumatic Eye: Present PERRL ENT: Present mucous membranes moist *Routine Neck Exam Neck: Present supple *Routine Respiratory Exam Respiratory: Present CTA bilaterally *Routine Cardiovascular Exam Cardiovascular: Present RRR *Routine Abdominal Exam Abdominal: Present soft *Routine Rectal Exam Rectal:: deferred *Routine Genitalia Exam Genitalia:: normal female Routine Back/Spine/Pelvis Exam Back/Spine: Present pain with flexion *Routine Skin Exam Skin: Present intact and warm *Routine Neurological Exam Neurological: Present alert and oriented X3 Routine Psychiatric Exam Psychiatric: Present normal affect and normal thought process Assessment and Plan *Assessment and plan (1) DDD (degenerative disc disease), lumbar: Status: Acute Category: Medical Code(s): M51.369 - Other intervertebral disc degeneration, lumbar region without mention of lumbar back pain or lower extremity pain Plan Patient has been instructed to contact the clinic with any concerns before the next appointment. Dr. Sommers has reviewed this note and agrees with this plan of care. This note was dictated using voice recognition software and make contain errors or omissions. All injections are used with Lidocaine, Bupivacaine and dexamethasone. Occasionally urine drug screen is needed to verify patient's compliance with our office pain contract. This is ordered based off specific treatments related to chronic pain with the potential to abuse certain medications.
--- NOTE | 2024-08-16 09:33 | EXP.PAIN.PRO ---
Procedure Date: 08/16/24 Time: 09:30 Anesthesiologist:: Vane Escobar APRN Complications:: None Pre-procedure Diagnosis:: Degenerative disc disease of lumbar spine with lumbar radiculopathy symptoms Post-procedure Diagnosis:: Same Indications for Procedure:: Patient is a pleasant 63-year-old female who presents today for intrathecal refill and reprogram. Today she rates her pain a 8 out of 10. She denies any new injuries or trauma. She does state that she has actually been doing a lot more painting around her house and feels like this might be aggravating some of her pains. She is currently managed with morphine 1 mg/mL with a daily dose of 0.1855 mg/day. She denies any side effects. Patient does make mention today that she is going on a trip in October to [place] with her friend of hers for 9 days and that she does want a make sure that her next refill date does not interfere with this timeframe. Her [place] has been reviewed and is appropriate. Physical Exam: General: Alert and oriented x3, no acute distress, pleasant and cooperative Lungs: Respirations even and unlabored, symmetrical chest expansion Eyes: PERRL Musculoskeletal: Flexion and extension of lumbar [spine] somewhat guarded secondary to pain, [antalgic gait noted] Neurological: Speech clear, no gross sensory deficit Procedure Details:: Informed consent was obtained and the risk and benefits of the procedure were explained to the patient. The patient had noninvasive monitoring placed including noninvasive blood pressure cuff and pulse oximeter. Patient's pump was interrogated. The area over the pump was cleansed with chlorhexidine as a cleansing solution. In sterile fashion the pump was accessed with a 22-gauge needle. Approximately 9.3 mls of the pump solution was removed and discarded appropriately. The pump was then refilled with 20 mL's of 1 mg/mL. The needle was withdrawn and a bandage was placed over the puncture site. The infusion rate was reprogrammed and increased 15% to morphine 0.2135 mg/day. The patient tolerated well with no complication. Plan and Disposition:: Patient tolerated the procedure well with no complications and was discharged neurologically intact. Patient will return to clinic on or before their next intrathecal refill date. We will see the patient back in the clinic at the next intrathecal refill. Patient has been instructed to contact the clinic with any concerns before the next appointment. Dr. Sommers has reviewed this note and agrees with this plan of care. This note was dictated using voice recognition software and make contain errors or omissions. -- It Is medically necessary for this patient to continue to have their intrathecal pump refilled at regular intervals. This patient had an intrathecal pain pump implanted after meeting criteria of chronic intractable pain for greater than 3 months and failing conservative treatments. Patient has committed and been compliant to the treatment plan and all planned follow up care. Since implantation of the intrathecal pain pump, the patient has had decreased pain and been more functional. Oral medications have been reduced including intake of oral opioids. Patient continues to do well with intrathecal therapy with decrease in pain symptoms and increase in functional status. Stopping intrathecal medications can lead to life threatening withdrawal, seizures, cardiac arrest, severe pain, and possible . Pumps that are not refilled at regular intervals can be damages and cause and need for replacement. We continually titrate dose and concentration to optimize pain relief and function. We are limited in concentration for certain drugs to safely deliver medications through the pump and stay within the recommendations from the Polyanalgesic Consensus Committee Guidelines. Depending on dose and concentration these pumps may need to be refilled sooner than 3 months as we titrate. A UDS is needed to verify patient's compliance with our office pain contract. This is ordered based off specific treatments related to chronic pain with the potential to abuse certain medications.
[2024-08-16 09:34] VITALS: BP 115/65; PULSE 75; RESP 18; O2SAT 96
[2024-08-16 09:58] VITALS: BP 96/67; PULSE 73; RESP 16; O2SAT 95
== END 2024-08-16 09:58 | disposition home or self-care (01) ==
PROVIDERS: PCP Family Medicine; Visit Provider Nurse Practitioner Family
DX: M51.16 Intervertebral disc disorders with radiculopathy, lumbar region (principal)
CPT/HCPCS: 62370

== ENCOUNTER 2024-10-17 10:59 | Day surgery (SDC) | payer MEDICARE, MEDICAID, SELFPAY ==
[2024-10-17 11:01] VITALS: BP 118/54; PULSE 73; RESP 18; O2SAT 97; BMI 38.7
--- NOTE | 2024-10-17 11:07 | P.HP_ITS ---
History of Present Illness *Admission Date: 10/17/24 *Reason for visit:: Intrathecal refill; DDD *History of present illness: Same [facility] Disclaimer: The information contained in this section may have been updated after the patient was seen, as this information can be updated by other users. Medical History Heart failure Arthritis Gout ELMO (obstructive sleep apnea) COPD (chronic obstructive pulmonary disease) CVA (cerebral vascular accident) DDD (degenerative disc disease), lumbar HLD (hyperlipidemia) HTN (hypertension) CAD (coronary artery disease) Diabetes Vitamin D deficiency Surgical History History of ear surgery H/O: hysterectomy History of cholecystectomy H/O breast surgery Family History Other Family history of myocardial infarction Family history of stroke Unknown family medical history Social History Smoking Status: Former smoker alcohol intake: never substance use type: denies use current occupational status: other Travel in the last 8 weeks?: None Have you lived/traveled outside [place] in past 30 days?: No Contact w/someone who lives/traveled outside [place] past 30 days?: No Exposure to someone with infectious disease in past 14 days?: No Do you have a fever (greater than 100.4 F or 38 C)?: No Have you tested positive for COVID-19?: No Exposed to someone with COVID-19 in past 14 days?: No Do you have a sore throat?: No Do you have a cough?: No Do you have any weakness?: No Do you have any diarrhea?: No Are you experiencing any unusual bleeding?: No Do you have any muscle aches/pain?: No Do you have any abdominal pain?: No Are you experiencing loss of taste or smell?: No Other Medical History Have you received the Flu Vaccine for this season: No Have you received the Pneumonia Vaccine: No Review of Systems Review of Systems Review of systems:: pertinent systems reviewed and negative unless documented below Review of systems (narrative): Review of Systems: General: No recent weight changes, no fever, no sleep disturbances Respiratory: No cough, no shortness of air, no recurring pulmonary infections Cardiovascular/peripheral vascular: No chest pain, no palpitations, no edema, no shortness of breath Gastrointestinal: No new onset incontinence, normal bowel movements reported Genitourinary: No new onset incontinence Musculoskeletal: Chronic back pain Psychiatric: [Normal mood/affect] Neurological: [Denies weakness in extremities], [denies balance issues] Meds Home Medications and Allergies Home Medications ?Medication ?Instructions ?Recorded ?Confirmed ?Type albuterol sulfate 2.5 mg/3 mL 2.5 mg inhalation Q4H WA N 05/05/23 10/17/24 History (0.083 %) solution for nebulization Breathing Problems aspirin 325 mg tablet,delayed 325 mg PO DAILY Heart Di sease 05/05/23 10/17/24 History release calcium polycarbophil 625 mg 1,250 mg PO DAILY SUPPLIM ENT 05/05/23 10/17/24 History tablet (Fiber-Lax) clopidogrel 75 mg tablet 75 mg PO DAILY Heart Disease 05/05/23 10/17/24 History cyanocobalamin (vitamin B-12) 1,000 mcg PO DAILY SUPPL IMENT 05/05/23 10/17/24 History 1,000 mcg tablet cyclobenzaprine 5 mg tablet 5 mg PO DAILY Pain 4 10/17/24 History dulaglutide 0.75 mg/0.5 mL 0.75 mg SQ WEEKLY 05/05/23 10/17/24 History subcutaneous pen injector ergocalciferol (vitamin D2) 50 mcg 50 mcg PO Q7D 05/0510/17/24 History (2,000 unit) tablet esomeprazole magnesium 40 mg 40 mg PO DAILY GERD 05/0510/17/24 History capsule,delayed release fenofibrate nanocrystallized 145 145 mg PO DAILY Mehreen sterol 05/05/23 10/17/24 History mg tablet insulin aspart U-100 100 unit/mL 60 unit SQ BID 10/17/24 History (3 mL) subcutaneous pen (Novolog FlexPen U-100 Insulin aspart) insulin glargine 100 unit/mL (3 70 unit SQ HS 05/05/23 10/17/24 History mL) subcutaneous pen (Lantus Solostar U-100 Insulin) isosorbide mononitrate 60 mg 60 mg PO DAILY 05/05/23 0 10/17/24 History tablet,extended release 24 hr loratadine 10 mg tablet 10 mg PO DAILY ALLERGIES 05/2710/17/24 History losartan 100 1 tab PO DAILY BLOOD PRESSUR E 05/05/23 10/17/24 History mg-hydrochlorothiazide 25 mg tablet metformin 1,000 mg tablet 1,000 mg PO BID Diabetes 05/2710/17/24 History metoprolol tartrate 50 mg tablet 50 mg PO BID BLOOD WA ESSURE 05/05/23 10/17/24 History montelukast 10 mg tablet 10 mg PO DAILY ALLERGIES 05/2710/17/24 History nitroglycerin 0.4 mg sublingual 0.4 mg sublingual Q5MI GLOVE PAIRER PRN Chest 05/05/23 10/17/24 History tablet Pain New Prescriptions to Start Prescriptions: Allergies Allergy/AdvReac Type Severity Reaction Status Date / Time adhesive tape AdvReac Unknown Verified 01/23/24 14:15 allergy reaction Exam Constitutional Constitutional: no acute distress *Routine HEENT Exam Head: Present normocephalic and atraumatic Eye: Present PERRL ENT: Present mucous membranes moist *Routine Neck Exam Neck: Present supple *Routine Respiratory Exam Respiratory: Present CTA bilaterally *Routine Cardiovascular Exam Cardiovascular: Present RRR *Routine Abdominal Exam Abdominal: Present soft *Routine Rectal Exam Rectal:: deferred *Routine Genitalia Exam Genitalia:: deferred Routine Back/Spine/Pelvis Exam Back/Spine: Present pain with flexion *Routine Skin Exam Skin: Present intact, dry and warm *Routine Neurological Exam Neurological: Present alert and oriented X3 Routine Psychiatric Exam Psychiatric: Present normal affect and normal thought process Assessment and Plan *Assessment and plan (1) DDD (degenerative disc disease), lumbar: Status: Acute Category: Medical Code(s): M51.369 - Other intervertebral disc degeneration, lumbar region without mention of lumbar back pain or lower extremity pain Plan Patient has been instructed to contact the clinic with any concerns before the next appointment. Dr. Sommers has reviewed this note and agrees with this plan of care. This note was dictated using voice recognition software and make contain errors or omissions. All injections are used with Lidocaine, Bupivacaine and dexamethasone. Occasionally urine drug screen is needed to verify patient's compliance with our office pain contract. This is ordered based off specific treatments related to chronic pain with the potential to abuse certain medications.
--- NOTE | 2024-10-17 11:08 | EXP.PAIN.PRO ---
Procedure Date: 10/17/24 Time: 11:35 Anesthesiologist:: Vane Escobar APRN Complications:: None Pre-procedure Diagnosis:: Degenerative disc disease of lumbar spine with lumbar radiculopathy symptoms Post-procedure Diagnosis:: Same Indications for Procedure:: Patient is a pleasant 63-year-old female who presents today for intrathecal refill and reprogram. She rates her pain today at an 8 out of 10. She denies any new falls or injuries. She is asking if we can do an increase on her pump medication. Patient is currently managed with morphine 1 mg/mL with a daily dose of 0.2135 mg/day. She denies any side effects. Her [place] has been reviewed and is appropriate. Physical Exam: General: Alert and oriented x3, no acute distress, pleasant and cooperative Lungs: Respirations even and unlabored, symmetrical chest expansion Eyes: PERRL Musculoskeletal: Flexion and extension of lumbar [spine] somewhat guarded secondary to pain, [antalgic gait noted] Neurological: Speech clear, no gross sensory deficit Procedure Details:: Informed consent was obtained and the risk and benefits of the procedure were explained to the patient. The patient had noninvasive monitoring placed including noninvasive blood pressure cuff and pulse oximeter. Patient's pump was interrogated. The area over the pump was cleansed with chlorhexidine as a cleansing solution. In sterile fashion the pump was accessed with a 22-gauge needle. Approximately 6.2 mls of the pump solution was removed and discarded appropriately. The pump was then refilled with 20 mL's of morphine 1 mg/mL. The needle was withdrawn and a bandage was placed over the puncture site. The infusion rate was reprogrammed and increased to morphine 0.2239 mg/day. The patient tolerated well with no complication. Plan and Disposition:: Patient tolerated the procedure well with no complications and was discharged neurologically intact. Patient will return to clinic on or before their next intrathecal refill date. We will see the patient back in the clinic at the next intrathecal refill. Patient has been instructed to contact the clinic with any concerns before the next appointment. Dr. Sommers has reviewed this note and agrees with this plan of care. This note was dictated using voice recognition software and make contain errors or omissions. -- It Is medically necessary for this patient to continue to have their intrathecal pump refilled at regular intervals. This patient had an intrathecal pain pump implanted after meeting criteria of chronic intractable pain for greater than 3 months and failing conservative treatments. Patient has committed and been compliant to the treatment plan and all planned follow up care. Since implantation of the intrathecal pain pump, the patient has had decreased pain and been more functional. Oral medications have been reduced including intake of oral opioids. Patient continues to do well with intrathecal therapy with decrease in pain symptoms and increase in functional status. Stopping intrathecal medications can lead to life threatening withdrawal, seizures, cardiac arrest, severe pain, and possible . Pumps that are not refilled at regular intervals can be damages and cause and need for replacement. We continually titrate dose and concentration to optimize pain relief and function. We are limited in concentration for certain drugs to safely deliver medications through the pump and stay within the recommendations from the Polyanalgesic Consensus Committee Guidelines. Depending on dose and concentration these pumps may need to be refilled sooner than 3 months as we titrate. A UDS is needed to verify patient's compliance with our office pain contract. This is ordered based off specific treatments related to chronic pain with the potential to abuse certain medications.
[2024-10-17 11:35] VITALS: BP 118/54; PULSE 73; RESP 18; O2SAT 97
[2024-10-17 11:40] VITALS: BP 124/74; PULSE 66; RESP 18; O2SAT 96
== END 2024-10-17 11:40 | disposition home or self-care (01) ==
PROVIDERS: Visit Provider Nurse Practitioner Family
DX: Z45.1 Encounter for adjustment and management of infusion pump (principal); M51.16 Intervertebral disc disorders with radiculopathy, lumbar region; I11.0 Hypertensive heart disease with heart failure; I50.9 Heart failure, unspecified; J44.9 Chronic obstructive pulmonary disease, unspecified; E78.5 Hyperlipidemia, unspecified; E11.9 Type 2 diabetes mellitus without complications; I25.10 Atherosclerotic heart disease of native coronary artery without angina pectoris; Z86.73 Personal history of transient ischemic attack (TIA), and cerebral infarction without residual deficits; G47.33 Obstructive sleep apnea (adult) (pediatric); E55.9 Vitamin D deficiency, unspecified; Z87.891 Personal history of nicotine dependence; Z79.82 Long term (current) use of aspirin; Z79.85 Long-term (current) use of injectable non-insulin antidiabetic drugs; Z79.02 Long term (current) use of antithrombotics/antiplatelets; Z79.01 Long term (current) use of anticoagulants; Z79.4 Long term (current) use of insulin; Z79.84 Long term (current) use of oral hypoglycemic drugs; Z79.899 Other long term (current) drug therapy; Z91.048 Other nonmedicinal substance allergy status
CPT/HCPCS: 62370